=== PATIENT | female | born 2000 | race Caucasian/White ===

== ENCOUNTER → 2023-01-13 | Day surgery (SDC) | payer MEDICAID ==
--- NOTE | 2023-01-13 14:23 | NUR ---
PATIENT AMBULATED TO [facility] WITH STEADY GAIT AT 0641. URINE OBTAINED. PATIENT STATED SHE HAD EATEN AN EGG AT 2330 AND AN APPLE AT 1300 THE DAY PRIOR. PATIENT ALSO STATED HER STOOLS WERE CLEAR "OFF AND ON.". DR. ALCANTAR NOTIFIED AND HE STATED IT WAS OKAY TO PROCEDE WITH PROCEDURE. URINE PREGANCY TEST SENT TO THE LAB AT THIS TIME. PATIENT THEN STATED SHE WOULD BE UPSET IF SHE WERE TO HAVE THE PROCEDURE IF SHE WAS NOT CLEARED. DR. ALCANTAR NOTIFIED AND HE STATED TO TELL THE PATIENT TO RESCHEDULE AND HIS OFFICE WOULD BE IN CONTACT TO RESCHEDULE. PATIENT STATED UNDERSTANDING, PROCEDURE CANCELED.
== END ==
LOC: SDCO 06:32
DX: R10.9 Unspecified abdominal pain (principal); R11.2 Nausea with vomiting, unspecified; K21.9 Gastro-esophageal reflux disease without esophagitis; Z53.8 Procedure and treatment not carried out for other reasons